=== PATIENT | female | born 1980 | race Caucasian/White ===

== ENCOUNTER → 2016-12-03 | Outpatient (CLI) | payer BC ==
--- NOTE | 2016-12-03 08:09 | MM ---
Reason for exam: screening (asymptomatic). Baseline mammogram. History: Silicone gel implants, 2005. Took hormonal contraceptives for 5 years. Physical Findings: Nurse did not find any significant physical abnormalities on exam. MG Screening Mammo Implant/CAD Bilateral CC, MLO, and ID view(s) were taken. The breast tissue is extremely dense which could obscure a lesion on mammography. No suspicious abnormality. These results were verbally communicated with the patient and result sheet given to the patient on 12/03/16. ASSESSMENT: Negative, BI-RAD 1 RECOMMENDATION: Routine screening mammogram of both breasts in 1 year.
== END ==
LOC: RADMAMWWP 07:05
PROVIDERS: ATTEND Obstetrics & Gynecology
DX: Z12.31 Encounter for screening mammogram for malignant neoplasm of breast (principal)

== ENCOUNTER → 2018-03-16 | Outpatient (CLI) | payer BC ==
--- NOTE | 2018-03-19 20:43 | BMR ---
EXAMINATION TYPE: MR breast BILAT wo/w con DATE OF EXAM: 03/16/2018 COMPARISON: Mammogram dated 12/03/2016 HISTORY: BiLateral Silicone Implants 2010, R/O Rupture, Joint pain TECHNIQUE: A series of fat and water weighted images in the long and short axis views of both breasts are obtained in conjunction with dynamic contrast MRI with subtraction technique. The patient was i njected with 7.5 mL intravenous Gadavist gadolinium contrast. Three-dimensional and additional post processing imaging is created on independent workstation and reviewed during official interpretation of this study. FINDINGS: The exam is somewhat limited given patient motion throughout. The breasts are composed of extreme fibroglandular tissue demonstrating mild background parenchymal e nhancement. There are bilateral retropectoral silicone breast implants. There are 3 focal small intracapsular tears within the right breast implant demonstrated as a new sig n or link mediastinum medially within the right breast implant such as on series 1201 (T2 axial nonfa t sat) images 33 and 34 and laterally on image 30 as well as laterally on image 21 and 22. Radial fol ds are noted on the left. No evidence of extracapsular rupture either breast. No suspicious mass nor mass enhancement of either breast. No suspicious axillary, internal mammary or intramammary adenopathy. IMPRESSION: 1. Three small focal intracapsular ruptures on the right without evidence of extracapsular rupture wi thin either breast. 2. BI-RADS 1-No MRI evidence of malignancy. Annual screening mammography is recommended for which the patient is due if not performed recently at an outside institution.
== END | disposition home or self-care (01) ==
LOC: RADMRIMAIN 14:58
PROVIDERS: ATTEND Plastic Surgery
DX: T85.49XA Other mechanical complication of breast prosthesis and implant, initial encounter (principal)
CPT/HCPCS: 77049; C8937; A9585

== ENCOUNTER → 2020-11-05 | Outpatient (CLI) | payer BC ==
--- NOTE | 2020-11-07 10:57 | MM ---
Reason for exam: screening (asymptomatic). Last mammogram was performed 3 years and 11 months ago. History: Silicone gel implants in both breasts, April 2018. Silicone gel implants, 2005. Took hormonal contraceptives for 5 years. Physical Findings: A clinical breast exam by your physician is recommended on an annual basis and results should be correlated with mammographic findings. MG 3D Screen Mammo Imp/Cad Bilateral CC, MLO, and XCCL view(s) were taken. Prior study comparison: December 03, 2016, bilateral MG screening mammo implant/CAD. The breast tissue is heterogeneously dense. This may lower the sensitivity of mammography. Bilateral retropectoral silicone implants. New grouped calcifications far posterior and superior left MLO view. On 3D images, these may be medial. ASSESSMENT: Incomplete: need additional imaging evaluation, BI-RAD 0 RECOMMENDATION: Special view mammogram of the left breast. (magnification) [facility] will attempt to contact patient to return for supplemental views.
== END | disposition home or self-care (01) ==
LOC: RADMAMWWP 15:48
PROVIDERS: ATTEND Family Medicine
DX: Z12.31 Encounter for screening mammogram for malignant neoplasm of breast (principal); Z98.82 Breast implant status
CPT/HCPCS: 77063; 77067

== ENCOUNTER → 2020-11-12 | Outpatient (CLI) | payer BC ==
--- NOTE | 2020-11-12 10:10 | MM ---
Reason for exam: additional evaluation requested from abnormal screening. Last mammogram was performed less than 1 month ago. History: Silicone gel implants in both breasts, April 2018. Silicone gel implants, 2005. Took hormonal contraceptives for 5 years. Physical Findings: Nurse did not find any significant physical abnormalities on exam. MG 3D Work Up W/Cad W/Imp LT CC with magnification, MLO with magnification, LM with magnification, and LM view(s) were taken of the left breast. Prior study comparison: November 05, 2020, bilateral MG 3d screen mammo imp/cad. March 16, 2018, bilateral MR breast bilat wo/w con. December 03, 2016, bilateral MG screening mammo implant/CAD. The breast tissue is heterogeneously dense. This may lower the sensitivity of mammography. Retropectoral silicone implant. Posterior superior calcifications on screening are not reproducible on additional views. Possibly related to prior history of implant rupture and removal. These results were verbally communicated with the patient and result sheet given to the patient on 11/12/20. ASSESSMENT: Probably benign, BI-RAD 3 RECOMMENDATION: Follow-up diagnostic mammogram of the left breast in 6 months.
== END | disposition home or self-care (01) ==
LOC: RADMAMWWP 07:48
PROVIDERS: ATTEND Family Medicine
DX: R92.8 Other abnormal and inconclusive findings on diagnostic imaging of breast (principal)
CPT/HCPCS: 77061; 77065

== ENCOUNTER → 2021-06-25 | Outpatient (CLI) | payer BC ==
--- NOTE | 2021-06-25 11:45 | MM ---
Reason for exam: follow-up at short interval from prior study. Last mammogram was performed 7 months ago. History: Silicone gel implants in both breasts, April 2018. Silicone gel implants, 2005. Took hormonal contraceptives for 5 years. Physical Findings: A clinical breast exam by your physician is recommended on an annual basis and results should be correlated with mammographic findings. MG Diag Mamm Implant LT w CAD CC, MLO, and ID view(s) were taken of the left breast. Prior study comparison: November 12, 2020, left breast MG 3d work up w/cad w/imp LT. November 05, 2020, bilateral MG 3d screen mammo imp/cad. The breast tissue is extremely dense which could obscure a lesion on mammography. There is no discrete abnormality. Left implant redemonstrated. Results were given to the patient verbally at the time of the exam. ASSESSMENT: Benign, BI-RAD 2 RECOMMENDATION: Return to routine screening mammogram schedule for both breasts. Back on schedule for October 2021.
== END | disposition home or self-care (01) ==
LOC: RADMAMWWP 07:37
PROVIDERS: ATTEND Family Medicine
DX: R92.8 Other abnormal and inconclusive findings on diagnostic imaging of breast (principal)
CPT/HCPCS: 77065

== ENCOUNTER → 2021-12-14 | Outpatient (CLI) | payer BC ==
--- NOTE | 2021-12-14 11:25 | MM ---
Reason for Exam: Confirmation of palpable mass. Last mammogram was performed 1 year(s) and 1 month(s) ago. Indicated Problems: Palpable abnormality of the left side for 4 Month(s). Patient History: Menarche at age 11. First Full-Term at age 11. Patient has history of breast feeding. Patient used Hormonal Contraceptives for 5 years. 04/2018, Bilateral Implants. 2004, Implant(s). Last menstrual period: 11/15/2021 Risk Values: Rosangela 5 year model risk: 0.5%. NCI Lifetime model risk: 7.1%. Prior Study Comparison: 12/03/2016 Bilateral Screening Mammogram, [facility]. 03/16/2018 Bilateral Diagnostic Breast MRI, [facility]. 11/05/2020 Bilateral Screening Mammogram, [facility]. 11/12/2020 Left Diagnostic Mammogram, [facility]. 06/25/2021 Left Diagnostic Mammogram, [facility]. Tissue Density: The breast tissue is heterogeneously dense. This may lower the sensitivity of mammography. Findings: There is a ovoid mass measuring 18 mm in the retroareolar region of the left breast that correlates with palpable abnormality. No suspicious calcifications or distortions. No suspicious masses consultations or distortions within the right breast. Overall Assessment: Incomplete: need additional imaging evaluation, BI-RAD 0 Management: Diagnostic Breast Ultrasound of the left breast. A clinical breast exam by your physician is recommended on an annual basis and results should be correlated with mammographic findings. This exam should not preclude additional follow-up of suspicious palpable abnormalities. Results were given to the patient verbally at the time of exam. Electronically signed and approved by: Ismael Higginbotham DO
--- NOTE | 2021-12-14 11:57 | USB ---
Reason for Exam: Clinical finding. Indicated Problems: Palpable abnormality of the left side for 5 Month(s). Patient History: Menarche at age 11. First Full-Term at age 11. Patient has history of breast feeding. Patient used Hormonal Contraceptives for 5 years. 04/2018, Bilateral Implants. 2004, Implant(s). Risk Values: Rosangela 5 year model risk: 0.5%. NCI Lifetime model risk: 7.1%. Prior Study Comparison: 11/05/2020 Bilateral Screening Mammogram, [facility]. 11/12/2020 Left Diagnostic Mammogram, [facility]. 06/25/2021 Left Diagnostic Mammogram, [facility]. Findings: The upper inner quadrant of the left breast, the axilla of the left breast and the retroareolar of the left breast were scanned. The left breast was scanned in the upper inner quadrant including retroareolar and axillary. There is an anechoic oval cyst at 11:00 5 cm from nipple that correlates with patient's palpable abnormality. Findings consistent with simple cyst. Overall Assessment: Benign, BI-RAD 2 Management: Screening Mammogram of both breasts in 1 year. A clinical breast exam by your physician is recommended on an annual basis and results should be correlated with mammographic findings. This exam should not preclude additional follow-up of suspicious palpable abnormalities. ??Results were given to the patient verbally at the time of exam. Electronically signed and approved by: sImael Higginbotham,
[2021-12-14 20:13] LABS: Estradiol 35.9 pg/mL; Follicle Stimulating Hormone 11.9 mIU/mL; Luteinizing Hormone 9.9 mIU/mL
== END | disposition home or self-care (01) ==
LOC: RADMAMWWP 10:28
PROVIDERS: ATTEND Obstetrics & Gynecology
DX: R92.8 Other abnormal and inconclusive findings on diagnostic imaging of breast (principal); R23.2 Flushing
CPT/HCPCS: 77062; 77066; 82670; 83001; 83002

== ENCOUNTER → 2023-02-23 | Outpatient (CLI) | payer BC ==
--- NOTE | 2023-02-25 17:25 | MM ---
Reason for Exam: Screening (asymptomatic). Last mammogram was performed 1 year(s) and 3 month(s) ago. Patient History: Menarche at age 13. First Full-Term at age 21. Patient has history of breast feeding. Patient used Hormonal Contraceptives for 5 years. 04/2018, Bilateral Implants. 2005, Implant(s). Last menstrual period: 02/21/2023 Risk Values: Rosangela 5 year model risk: 0.6%. NCI Lifetime model risk: 8.0%. Prior Study Comparison: 11/12/2020 Left Diagnostic Mammogram, [facility]. 06/25/2021 Left Diagnostic Mammogram, [facility]. 12/14/2021 Bilateral MG 3D diag mammo imp w/cad [facility]. Tissue Density: The breast tissue is extremely dense which could obscure a lesion on mammography. Findings: Analyzed By CAD. Pattern appears symmetrical and stable. Bilateral breast prostheses are present. No significant interval changes are evident. No suspicious groups of microcalcifications, spiculated or lobular masses, architectural distortion or other secondary signs of malignancy are mammographically apparent. Overall Assessment: Benign, BI-RAD 2 Management: Screening Mammogram of both breasts in 1 year. A negative mammogram report should not preclude additional follow up of suspicious palpable abnormalities. Patient should continue monthly self breast exam. A clinical breast exam by your physician is recommended on an annual basis and results should be correlated with mammographic findings. Electronically signed and approved by: Abraham Paez D.O. Radiologis
== END | disposition home or self-care (01) ==
LOC: RADMAMWWP 14:58
PROVIDERS: ATTEND Obstetrics & Gynecology
DX: Z12.31 Encounter for screening mammogram for malignant neoplasm of breast (principal); Z98.82 Breast implant status
CPT/HCPCS: 77063; 77067